=== PATIENT | male | born 1975 | race Two or more races ===

== ENCOUNTER 2021-02-28 20:33 | Emergency (ER) | payer OTHER ==
[~2021-02-28] VITALS: Ht 162.6 cm; Wt 70.2 kg
[2021-02-28 20:37] VITALS: BP 161/114
[2021-02-28] MEDS ORDERED: DIAZEPAM 5 MG TABLET ONE (21:51)
[2021-02-28] MEDS ORDERED: KETOROLAC 30 MG/1 ML ONE (21:52)
[2021-02-28] MEDS ORDERED: LIDODERM 5% PATCH TD ONE ×2 (21:52→22:00)
[2021-02-28] MEDS ORDERED: DIAZEPAM 5 MG TABLET PO ONE (22:00)
[2021-02-28] MEDS ORDERED: KETOROLAC 30 MG/1 ML IM ONE (22:00)
== END 2021-02-28 23:40 | disposition home or self-care (01) ==
LOC: ED 21:41
DX: S39.012A Strain of muscle, fascia and tendon of lower back, initial encounter (principal); Z72.9 Problem related to lifestyle, unspecified; X50.0XXA Overexertion from strenuous movement or load, initial encounter; Y93.89 Activity, other specified; Y92.89 Other specified places as the place of occurrence of the external cause; Y99.8 Other external cause status
CPT/HCPCS: 72110; 96372; 99283; J1885